=== PATIENT | female | born 1995 | race Caucasian/White ===

== ENCOUNTER 2024-03-12 17:42 | Emergency (ER) | payer OTHER, SELFPAY ==
[2024-03-12 17:58] VITALS: BP 107/73; PULSE 68; TEMP 36.8; O2SAT 99; BMI 31.5
--- NOTE | 2024-03-12 18:27 | ED_ITS ---
HPI - Dental/Oral General: Chief complaint: Dental/Oral Stated complaint: right side mouth pain Time Seen by Provider: 03/12/24 18:02 Source: patient Mode of arrival: ambulatory Limitations: no limitations History of Present Illness: Patient is a 28-year-old female presenting to the emergency department complaining of right lower jaw pain onset past 2 days. Reports history of dental abscess, states this feels same. She states that she called her dentist, is not able to get in for 10 days and was told to come to the ED to be treated for an abscess as they cannot pull any teeth with a lingering infection. She notes extension of the pain towards her right ear and into her right neck. No fever, difficulty swallowing, trouble breathing, or other symptoms reported at this time. MD Complaint: tooth pain Onset (ago): day(s) Duration: constant Severity: severe Relieving factors: nothing Exacerbating factors: chewing and cold Associated symptoms: Reports ear or mastoid pain; Denies fever(s) Treatment prior to arrival: none Related Data Previous Rx's Medication Instructions Recorded azithromycin 500 mg tablet 500 mg PO DAILY 5 days #5 tabs 03/12/24 prednisone 20 mg tablet 60 mg (3 x 20 mg) PO ONCE 5 days 03/12/24 #15 tabs Allergies Allergy/AdvReac Type Severity Reaction Status Date / Time amoxicillin Allergy ALGY-Hives Verified 03/12/24 18:02 Review of Systems General: Reports: 10 or more systems reviewed and unremarkable except in HPI and below Const: Denies: fever(s), chills or fatigue Eyes: Denies: change in vision ENMT: Reports: dental pain, ear or mastoid pain and sinus pain; Denies: throat pain or nasal discharge Card: Denies: chest pain, palpitations, swelling of feet/ankles or lightheadedness Resp: Denies: dyspnea, productive cough or wheezing GI: Denies: abdominal pain, nausea, vomiting, diarrhea or constipation : Denies: flank pain, difficulty voiding, dysuria or urinary frequency Musc: Reports: neck pain; Denies: back pain or joint pain Skin/Breast: Denies: rash Neuro: Denies: headache(s), numbness in extremities or weakness in extremities Physical Exam Const: COMMON NORMALS: no acute distress and no limitations GENERAL APPEARANCE: cooperative, comfortable and well developed ORIENTATION/CONSCIOUSNESS: Yes awake HENMT: COMMON NORMALS: normocephalic, atraumatic, hearing grossly normal bilaterally and moist oral mucous membranes HEAD & SCALP: normocephalic and atraumatic FACE & SINUS: normal facial exam and other (Tenderness to palpation of right face) MOUTH: Normal oral and palatal mucosa present TEETH & GINGIVA: Yes abnormal tooth and associated gingiva lower right tender and with associated gingival edema and Yes fair dentition THROAT: posterior oropharynx normal and tonsils normal Eye: COMMON NORMALS: Equal, round and reactive pupils present, EOMs intact bilaterally and conjunctivae normal CONJUNCTIVA: Yes conjunctivae normal PUPIL: Yes Equal, round and reactive pupils present Neck/C-Spine: COMMON NORMALS: full ROM, supple and no JVD Resp: COMMON NORMALS: normal respiratory effort, No retractions, No use of accessory muscles and clear to auscultation bilaterally AUSCULTATION: clear to auscultation bilaterally Cardio: COMMON NORMALS: no JVD, regular rate, regular rhythm, No clicks present (Cardio), No murmurs present (Cardio) and No rub (Cardio) RATE: regular rate RHYTHM: regular rhythm Extremity: COMMON NORMALS: normal to inspection, full ROM and capillary refill normal Skin: COMMON NORMALS: no rashes or lesions noted GENERAL SKIN EXAM: no rashes or lesions noted Course Vital Signs: Vital signs: Vital Signs Temperature 98.2 F 03/12/24 17:58 Pulse Rate 68 03/12/24 17:58 Blood Pressure 107/73 03/12/24 17:58 Pulse Oximetry 99 03/12/24 17:58 Oxygen Delivery Me thod Room Air 03/12/24 17:58 MDM - Dental/Oral Medical Decision Making Patient presents with clinical signs and symptoms of dental abscess, directly relating her current symptoms to her prior dental abscess. Has appointment scheduled with dentist in 10 days. Examination did reveal some tenderness and edema of the right lower dentition, will treat for abscess. Allergy to penicillin, so we will do azithromycin along with short course of steroids. She is given 1 dose of [place] here in the emergency department. Return precautions given. She is encouraged to continue her follow-up. No radiology studies performed this visit Discharge Plan Discharge Patient Disposition: Home Clinical Impression: Dental abscess Condition: Stable Prescriptions: New prednisone 20 mg tablet 60 mg PO ONCE 5 Days Qty: 15 0RF azithromycin 500 mg tablet 500 mg PO DAILY 5 Days Qty: 5 0RF Discharge Orders: Discharge ED (Routine); Ordered 03/12/24 Ordered By: Dino Chapa Discharge Diet: Usual diet Discharge Activity: Increase activity as tolerated Patient Instructions: Dental Abscess (ED) Activity Restrictions/Additional Instructions: Azithromycin as prescribed. Prednisone. Continue follow-up with dentist in 10 days as scheduled. Tylenol/ibuprofen at home for pain relief. Return with any new or worsening. Coding Level of Care Code ED [place] Monitoring Technician for Ta Mitchell
[2024-03-12] MEDS: HYDROcodone-acetaminophen 7.5-325 mg Tablet 1 TAB PO (18:28)
== END 2024-03-12 18:34 | disposition home or self-care (01) ==
PROVIDERS: Emergency Provider Physician Assistant
DX: K04.7 Periapical abscess without sinus (principal)
CPT/HCPCS: 99283

== ENCOUNTER 2024-12-28 12:57 | Emergency (ER) | payer OTHER, SELFPAY ==
[2024-12-28 13:03] VITALS: BP 108/72; PULSE 66; TEMP 36.6; O2SAT 97; BMI 27.8
--- NOTE | 2024-12-28 13:13 | ED_ITS ---
HPI - Abdominal Pain 2 General: Chief Complaint: Abdominal Pain Stated Complaint: constipation Time Seen by Provider: 12/28/24 12:59 Source: patient Mode of arrival: ambulatory Limitations: no limitations History of Present Illness: Patient is a 29-year-old female presents to ED today with a complaint of abdominal pain and constipation. She states she has been having abdominal pain over the past 4 to 5 months with significant constipation. Before this she is reporting normal bowel movements. Her and significant other reports she will wake up drenched in sweat due to the constipation and abdominal pain. She has tried multiple [id number]-[id number] therapies including Colace, MiraLAX, enemas/suppositories without much relief. She is having pain currently to her left upper abdomen. She does have a history of hemorrhoids. She does report some mild weight loss but not sure if this is intentional or not. She states she has vomited several times secondary to constipation. MD elicited complaint: abdominal pain Onset (ago): month(s) Pain Consistency: constant Location: Diffuse Severity: moderate Quality: fullness Radiation: none Migration to: no migration Exacerbating factors: nothing Relieving factors: nothing Associated Symptoms: Reports constipation, nausea and vomiting; Denies chills, dysuria, fever(s), hematochezia, hematuria, hematemesis and melena Related Data Previous Rx's ?Medication ?Instructions ?Recorded naproxen 500 mg tablet 500 mg PO Q12H PRN pain #30 tabs 03/12/24 cephalexin 500 mg capsule 500 mg PO Q8H 7 days #21 cap s 10/13/24 lactulose 20 gram oral packet 20 g PO DAILY PRN consti pation #15 12/28/24 ea Allergies Allergy/AdvReac Type Severity Reaction Status Date / Time amoxicillin Allergy ALGY-Hives Verified 12/28/24 13:09 Review of Systems 2 Const: Reports: change in weight and night sweats; Denies: fever(s), chills, body aches, fatigue or malaise Card: Denies: chest pain Resp: Denies: dyspnea GI: Reports: abdominal pain, nausea, vomiting and constipation; Denies: hematemesis, hematochezia or melena : Denies: flank pain, dysuria or hematuria Musc: Denies: neck pain, back pain, extremity pain, extremity swelling, joint swelling or joint redness Skin/Breast: Denies: rash Neuro: Denies: headache(s), numbness in extremities, weakness in extremities, sensory changes or dizziness PFSH ED 2 PFSH: Social History Smoking and tobacco/nicotine status: never used tobacco/nicotine Physical Exam 2 Const: COMMON NORMALS: no acute distress, average body habitus, patient oriented x3, no limitations, healthy appearing, alert and well nourished G ENERAL APPEARANCE: cooperative ORIENTATION/CONSCIOUSNESS: Yes awake, Yes oriented to person, Yes oriented to place and Yes oriented to time Eye: COMMON NORMALS: no scleral icterus Neck/C-Spine: COMMON NORMALS: full ROM, no lymphadenopathy, supple and no meningeal signs Chest: COMMONS NORMALS: normal inspection of the chest Resp: COMMON NORMALS: normal respiratory effort and clear to auscultation bilaterally AUSCULTATION: clear to auscultation bilaterally Cardio: COMMON NORMALS: regular rate and regular rhythm RATE: regular rate RHYTHM: regular rhythm GI: COMMON NORMALS: Normal to inspection, nondistended, normoactive bowel sounds present, Soft to palpation, No hepatosplenomegaly present and no masses INSPECTION: Yes normal to inspection AUSCULTATION: Yes normoactive bowel sounds PALPATION: Yes Soft to palpation, Yes Tenderness to palpation present (GI), No Guarding due to palpation present (GI), No Rigid due to palpation and Yes No hepatosplenomegaly present : COMMON NORMALS: Yes no CVA tenderness BLADDER/KIDNEY EXAM: Yes no CVA tenderness Back/Pelvis: COMMON NORMALS: no CVA tenderness and thoracic and lumbar spine normal to inspection Extremity: COMMON NORMALS: normal to inspection GENERAL: Yes normal exam except as noted Neuro: COMMON NORMALS: patient oriented x3 SENSORIUM/ORIENTATION: Yes alert, Yes oriented to person, Yes oriented to place and Yes oriented to time MENINGEAL SIGNS: Yes no meningeal signs Skin: COMMON NORMALS: no rashes or lesions noted GENERAL SKIN EXAM: no rashes or lesions noted Course 2 Vital Signs: Vital signs: Vital Signs Temperature 97.9 F 12/28/24 13:03 Pulse Rate 66 12/28/24 13:03 Blood Pressure 108/72 12/28/24 13:03 Pulse Oximetry 97 12/28/24 13:03 Oxygen Delivery Me thod Room Air 12/28/24 13:03 MDM - Abdominal Pain Medical Decision Making Patient's vital signs are stable. Her blood work/UA are unremarkable. CT scan showing no acute findings. She was ordered an enema here but wants to administer this at home. She was given this along with an oral mixture to take as well. Further recommendations given once she starts passing stool for additional colon evacuation. Return ED precautions given. Otherwise she can follow-up with primary care. Differential Diagnosis Likely abdominal pain, constipation and small bowel obstruction Medical Records I reviewed the patient's medical records. Lab Data I reviewed the patient's lab results. 12/28/24 13:46 12/28/24 13:46 Labs/Radiology: Radiology Impressions Abdomen/Pelvis CT 12/28/24 13:38 IMPRESSION: No acute findings. Laboratory Results WBC 8.30 10^3/uL (3.29-11.43) 12/28/24 13:46 RBC 4.50 10^6/uL (3.85-5.65) 12/28/24 13:46 Hgb 13.10 g/dL (11.27-16.99) 12/28/24 13:46 Hct 40.4 % (36-47) 12/28/24 13:46 MCV 89.8 fl (85-98) 12/28/24 13:46 MCH 29.1 pg (27-33) 12/28/24 13:46 MCHC 32.4 g/dL (30-55) 12/28/24 13:46 RDW 12.6 % (12.1-15.1) 12/28/24 13:46 Plt Count 301 10^3/cmm (157-399) 12/28/24 13:46 MPV 8.7 fL (7.4-10.4) 12/28/24 13:46 Neut % (Auto) 63.1 % 12/28/24 13:46 Lymph % (Auto) 29.5 % 12/28/24 13:46 [place] % (Auto) 5.4 % 12/28/24 13:46 Eos % (Auto) 1.1 % 12/28/24 13:46 Baso % (Auto) 0.7 % 12/28/24 13:46 Neut # (Auto) 5.23 10^3/uL (1.8-7.7) 12/28/24 13:46 Lymph # (Auto) 2.5 10^3/uL (0.8-4.8) 12/28/24 13:46 [place] # (Auto) 0.5 10^3/uL (0.2-0.9) 12/28/24 13:46 Eos # (Auto) 0.1 10^3/uL (0.0-0.8) 12/28/24 13:46 Baso # (Auto) 0.1 10^3/uL (0.0-0.1) 12/28/24 13:46 Nucleated RBC % (auto) 0 % 12/28/24 13:46 Nucleated RBCs # 0.0 /100WBC 12/28/24 13:46 Sodium 139 mmol/L (136-145) 12/28/24 13:46 Potassium 4.2 mmol/L (3.5-5.1) 12/28/24 13:46 Chloride 102 mmol/L (98-107) 12/28/24 13:46 Carbon Dioxide 26 mmol/L (22-29) 12/28/24 13:46 Anion Gap 15.2 (5-19) 12/28/24 13:46 BUN 9 mg/dL (6-20) 12/28/24 13:46 Creatinine 0.7 mg/dL (0.5-0.9) 12/28/24 13:46 GFR Calculation 97.6 mL/min (90-130) 12/28/24 13:46 Glucose 100 mg/dL (65-115) 12/28/24 13:46 Calculated Osmolality 287 mOsm/kg (285-295) 12/28/24 13:46 Calcium 9.6 mg/dL (8.5-10.5) 12/28/24 13:46 Total Bilirubin 0.2 mg/dL (0.15-1.2) 12/28/24 13:46 AST 14 U/L (0-32) 12/28/24 13:46 ALT 11 U/L (0-33) 12/28/24 13:46 Alkaline Phosphatase 69 U/L (35-105) 12/28/24 13:46 Total Protein 7.5 g/dL (6.6-8.7) 12/28/24 13:46 Albumin 4.2 g/dL (3.5-5.2) 12/28/24 13:46 Globulin 3.3 g/dL (1.3-4.6) 12/28/24 13:46 Lipase 18 U/L (13-60) 12/28/24 13:46 HCG, Qual Negative (Negative) 12/28/24 13:46 Urine Color Yellow (Yellow) 12/28/24 13:57 Urine Appearance Clear (CLEAR) 12/28/24 13:57 Urine pH 6.5 (5-7) 12/28/24 13:57 Ur Specific [place] 1.012 (1.005-1.030) 12/28/24 13:57 Urine Protein Negative (Negative) 12/28/24 13:57 Urine Glucose (UA) Negative (Normal) 12/28/24 13:57 Urine Ketones Negative (Negative) 12/28/24 13:57 Urine Blood Negative (Negative) 12/28/24 13:57 Urine Nitrate Negative (Negative) 12/28/24 13:57 Urine Bilirubin Negative (Negative) 12/28/24 13:57 Urine Urobilinogen 1.0 mg/dL (Negative) 12/28/24 13:57 Ur Leukocyte Esterase Negative (Negative) 12/28/24 13:57 Urine RBC 0-2 /hpf (0-2) 12/28/24 13:57 Urine WBC 0-5 /hpf (0-5) 12/28/24 13:57 Ur Squamous Epith Cells 0-5 /hpf (0-5) 12/28/24 13:57 Amorphous Sediment Not Reportable 12/28/24 13:57 Urine Bacteria None seen /hpf (NONE) 12/28/24 13:57 Hyaline Casts 0-4 /lpf H 12/28/24 13:57 All radiology interpretation(s) finalized by discharge Discharge Plan Discharge Patient Disposition: Home Clinical Impression: Constipation Qualifiers: Constipation type: unspecified constipation type Qualified Code(s): K59.00 - Constipation, unspecified Condition: Stable Prescriptions: New lactulose 20 gram packet 20 g PO DAILY PRN (Reason: constipation) Qty: 15 0RF Rx Instructions: May increase to 40mg daily if needed. Response may take 1-2 days. No Action cephalexin 500 mg capsule 500 mg PO Q8H 7 Days Qty: 21 0RF naproxen 500 mg tablet 500 mg PO Q12H PRN (Reason: pain) Qty: 30 0RF Discharge Orders: Discharge ED (Routine); Ordered 12/28/24 Ordered By: Delia Pedersen Patient Instructions: Constipation (DC) Activity Restrictions/Additional Instructions: As we discussed, you were provided an enema to go home with and use at home. You may require further enemas/suppositories to alleviate fecal ball. Even after a large bowel movement, you need to continue with oral laxatives and suppositories over the next 1 to 2 weeks to continue to evacuate your colon. Print Language: Citizen [place] Coding Level of Care Code ED Compliance Advisor for Ta Mitchell
--- NOTE | 2024-12-28 13:38 | CTR_ITS ---
PROCEDURE INFORMATION: Exam: CT Abdomen And Pelvis With Contrast Exam date and time: 12/28/2024 2:39 PM Age: 29 years old Clinical indication: Abdominal pain; Additional info: Abdominal pain, constipation, vomiting, night sweats TECHNIQUE: Imaging protocol: Computed tomography of the abdomen and pelvis with contrast. Radiation optimization: All CT scans at this facility use at least one of these dose optimization techniques: automated exposure control; mA and/or kV adjustment per patient size (includes targeted exams where dose is matched to clinical indication); or iterative reconstruction. Contrast material: OMNI 350; Contrast volume: 100 ml; Contrast route: INTRAVENOUS (IV); COMPARISON: No relevant prior studies available. RADIATION DOSE METRICS: Total DLP (mGy-cm): 482.52 FINDINGS: Liver: Normal. No mass. Gallbladder and biliary ducts: Normal. No calcified stones. No ductal dilation. Pancreas: Normal. No ductal dilation. Spleen: Normal. No splenomegaly. Adrenal glands: Normal. No mass. Kidneys and ureters: Normal. No hydronephrosis. Stomach and bowel: Unremarkable. No obstruction. No mucosal thickening. Appendix: No evidence of appendicitis. Intraperitoneal space: Unremarkable. No free air. No significant fluid collection. Vasculature: Unremarkable. No abdominal aortic aneurysm. Lymph nodes: Unremarkable. No enlarged lymph nodes. Urinary bladder: Unremarkable as visualized. Reproductive: Unremarkable as visualized. Bones/joints: No acute fracture. Soft tissues: Unremarkable. CT/CT abdomen pelvis w con* [id number] IMPRESSION: No acute findings.
[2024-12-28 13:51] LABS: Basophils # 0.1 10^3/uL (0.0-0.1); Basophils % 0.7 %; Eosinophils # 0.1 10^3/uL (0.0-0.8); Eosinophils % 1.1 %; Hematocrit 40.4 % (36-47); Lymphocytes # 2.5 10^3/uL (0.8-4.8); Lymphocytes % 29.5 %; Mean Corpuscular HGB Conc 32.4 g/dL (30-55); Mean Corpuscular Hemoglobin 29.1 pg (27-33); Mean Corpuscular Volume 89.8 fl (85-98); Mean Platelet Volume 8.7 fL (7.4-10.4); Monocytes # 0.5 10^3/uL (0.2-0.9); Monocytes % 5.4 %; Neutrophils # 5.23 10^3/uL (1.8-7.7); Neutrophils % 63.1 %; Nucleated Red Blood Cells % 0 %; Platelet Count 301 10^3/cmm (157-399); Red Cell Distribution Width 12.6 % (12.1-15.1)
[2024-12-28 14:07] LABS: Alanine Aminotransferase 11 U/L (0-33); Albumin Level 4.2 g/dL (3.5-5.2); Alkaline Phosphatase 69 U/L (35-105); Anion Gap 15.2 (5-19); Aspartate Amino Transferase 14 U/L (0-32); Blood Urea Nitrogen 9 mg/dL (6-20); Calcium 9.6 mg/dL (8.5-10.5); Carbon Dioxide 26 mmol/L (22-29); Chloride 102 mmol/L (98-107); Creatinine Clr Calc Pharmacy 110.1609; Globulin 3.3 g/dL (1.3-4.6); Glomerular Filtration Rate 97.6 mL/min (90-130); Glucose 100 mg/dL (65-115); Lipase 18 U/L (13-60); Osmolality Calculated 287 mOsm/kg (285-295); Potassium 4.2 mmol/L (3.5-5.1); Sodium 139 mmol/L (136-145); Total Bilirubin 0.2 mg/dL (0.15-1.2); Total Protein 7.5 g/dL (6.6-8.7)
[2024-12-28 14:10] LABS: Bilirubin Urine Negative (Negative); Blood Urine Negative (Negative); Glucose Urine UA Negative (Normal); Ketones Urine Negative (Negative); Leukocyte Esterase Urine Negative (Negative); Nitrate Urine Negative (Negative); Protein Urine Negative (Negative); Specific Gravity, Urine 1.012 (1.005-1.030); Urine Appearance Clear (CLEAR); Urine Color Yellow (Yellow); pH Urine 6.5 (5-7)
[2024-12-28 14:12] LABS: Add Urine Microscopic? YES; Bacteria Urine None Seen /hpf; Hyaline Casts Urine 0-4 /lpf; RBC Urine 0-2 /hpf (0-2); Squamous Epithelial Cell Urine 0-5 /hpf (0-5); WBC Urine 0-5 /hpf (0-5)
[2024-12-28 14:21] LABS: HCG, Serum Qual Negative (Negative)
[2024-12-28] MEDS: iohexol 350 mg/mL 500 mL Btl (per mL) IV (14:40)
[2024-12-28] MEDS: lactulose oral liq 20 gm/30 mL UDC 30 GM PO (15:38)
[2024-12-28] MEDS: magnesium hydroxide 30 mL UDC PO (15:38)
[2024-12-28] MEDS: mineral oil 30 mL UDC PO (15:38)
== END 2024-12-28 15:49 | disposition home or self-care (01) ==
PROVIDERS: Emergency Provider Physician Assistant
DX: K59.00 Constipation, unspecified (principal)
CPT/HCPCS: 36415; 74177; 80053; 81001; 83690; 84703; 85025; 99285; J9999